=== PATIENT | female | born 1960 | race Caucasian/White ===

== ENCOUNTER → 2023-05-03 06:30 | Day surgery (SDC) | payer BC, SELFPAY | LOC: GI 06:30 | PROVIDERS: ATTENDING PHYSICIAN Internal Medicine Gastroenterology | DX: Z12.11 Encounter for screening for malignant neoplasm of colon (principal); K57.30 Diverticulosis of large intestine without perforation or abscess without bleeding | CPT/HCPCS: G0121 ==

== ENCOUNTER → 2024-01-02 08:13 | Outpatient (REF) | payer BC, SELFPAY | LOC: WDC 08:13 | PROVIDERS: ATTENDING PHYSICIAN Nurse Practitioner Adult Health; FAMILY PHYSICIAN Physician Assistant Medical | DX: Z12.31 Encounter for screening mammogram for malignant neoplasm of breast (principal) | CPT/HCPCS: 77063; 77067 ==

== ENCOUNTER → 2024-09-18 07:09 | Outpatient (REF) | payer BC, SELFPAY | LOC: RAD 07:09 | PROVIDERS: ATTENDING PHYSICIAN Physician Assistant Medical | DX: R07.89 Other chest pain (principal); R10.11 Right upper quadrant pain | CPT/HCPCS: 76700 ==

== ENCOUNTER → 2024-10-13 10:20 | Outpatient (REF) | payer BC, SELFPAY | LOC: RAD 10:20 | PROVIDERS: ATTENDING PHYSICIAN Physician Assistant Medical | DX: Z78.0 Asymptomatic menopausal state (principal) | CPT/HCPCS: 77080 ==

== ENCOUNTER → 2025-01-06 08:43 | Outpatient (REF) | payer BC, SELFPAY | LOC: WDC 08:43 | PROVIDERS: ATTENDING PHYSICIAN Physician Assistant Medical | DX: Z12.31 Encounter for screening mammogram for malignant neoplasm of breast (principal) | CPT/HCPCS: 77063; 77067 ==